=== PATIENT | female | born 1965 | race Caucasian/White ===

== ENCOUNTER → 2016-12-17 | Outpatient (CLI) | payer OTHER ==
[~2016-12-17] MED LIST: CEPHALEXIN500 M1 PO; COSAMIN DS 4001 TAB PO; DIFLUCAN150 MG PO; MULTI VITAMINS1 TAB PO; NO HOME MEDICATIONS; PERCOCET 325 MG1 TA3 PO; PHENERGAN 25 TA25 MG PO; PROMETRIUM100 MG PO; THE MEDICINE S300 M1 PO; VITAMIND3 5000 PO; [UNRECOGNIZED DRUG - OTHER]; [UNRECOGNIZED DRUG - REMARK] PO
[2016-12-17 09:31] LABS: THYROID STIMULATING HORMONE 1.79 uIU/mL (0.465-4.680)
[2016-12-18 00:14] LABS: T3 FREE (TRI-IODOTHYRONINE) 2.8 pg/mL (1.7-3.7)
[2016-12-22 09:08] LABS: T3 REVERSE TO AMS 11 ng/dL (10-24)
== END ==
LOC: COL.LAB 07:20
PROVIDERS: Urology
DX: R61 Generalized hyperhidrosis (principal); E55.9 Vitamin D deficiency, unspecified; R53.82 Chronic fatigue, unspecified

== ENCOUNTER → 2017-02-21 | Outpatient (CLI) | payer OTHER | LOC: MC.RAD 16:33 | DX: Z12.31 Encounter for screening mammogram for malignant neoplasm of breast (principal) ==

== ENCOUNTER → 2017-03-11 | Outpatient (REF) | LOC: WSOH 13:56 | DX: Z02.89 Encounter for other administrative examinations (principal) ==

== ENCOUNTER → 2018-03-12 | Outpatient (CLI) | payer OTHER ==
[2018-03-12 08:32] LABS: THYROID STIMULATING HORMONE 1.33 uIU/mL (0.465-4.680)
[2018-03-12 15:47] LABS: T3 FREE (TRI-IODOTHYRONINE) 3.2 pg/mL (1.7-3.7)
[2018-03-14 11:07] LABS: IODINE 79 ng/mL (40-92)
== END ==
LOC: COL.LAB 07:02
PROVIDERS: Urology
DX: E31.9 Polyglandular dysfunction, unspecified (principal); G47.00 Insomnia, unspecified; N95.9 Unspecified menopausal and perimenopausal disorder; R53.83 Other fatigue; R68.82 Decreased libido; R23.3 Spontaneous ecchymoses; R61 Generalized hyperhidrosis; E55.9 Vitamin D deficiency, unspecified; R53.82 Chronic fatigue, unspecified; Z79.890 Hormone replacement therapy

== ENCOUNTER → 2018-03-24 | Outpatient (CLI) | payer OTHER ==
[2018-03-24 23:48] LABS: DHEA (SULFATE) 168 mcg/dL (56-283); ESTRADIOL <10 pg/mL (())
== END ==
LOC: COL.LAB 09:55
PROVIDERS: Urology
DX: E31.9 Polyglandular dysfunction, unspecified (principal); G47.00 Insomnia, unspecified; R23.3 Spontaneous ecchymoses; R61 Generalized hyperhidrosis; E55.9 Vitamin D deficiency, unspecified; E28.310 Symptomatic premature menopause; Z79.890 Hormone replacement therapy

== ENCOUNTER 2018-05-29 05:26 | Day surgery (SDC) | payer OTHER ==
[~2018-05-29] VITALS: Ht 165.1 cm; Wt 65.0 kg
[2018-05-29] VITALS (7 sets, daily range): BP systolic 100–123; BP diastolic 55–89; PULSE 63–70; TEMP 97.9
[2018-05-29] MEDS ORDERED: NTHROIDNT65 PO (05:52)
== END 2018-05-29 11:00 | disposition home or self-care (01) ==
LOC: SDCO 05:26
DX: M20.21 Hallux rigidus, right foot (principal); M77.41 Metatarsalgia, right foot; M20.11 Hallux valgus (acquired), right foot
CPT/HCPCS: C1713; J0690; J1170; J2250; J2270; J2405; J2704; J3010; J7120

== ENCOUNTER → 2018-06-19 | Outpatient (CLI) | payer OTHER ==
[~2018-06-19] MED LIST changes: +NTHROIDNT65 PO
[2018-06-20 00:09] LABS: PROGESTERONE 0.3 ng/mL (()); T3 FREE (TRI-IODOTHYRONINE) 2.4 pg/mL (1.7-3.7)
== END ==
LOC: COL.LAB 08:22
PROVIDERS: Urology
DX: E31.9 Polyglandular dysfunction, unspecified (principal); G47.00 Insomnia, unspecified; R68.82 Decreased libido; R23.3 Spontaneous ecchymoses; R61 Generalized hyperhidrosis; E55.9 Vitamin D deficiency, unspecified; Z79.890 Hormone replacement therapy; E28.310 Symptomatic premature menopause

== ENCOUNTER → 2018-12-11 | Outpatient (CLI) | payer OTHER | LOC: MC.RAD 14:59 | DX: Z12.31 Encounter for screening mammogram for malignant neoplasm of breast (principal); R92.0 Mammographic microcalcification found on diagnostic imaging of breast; E31.9 Polyglandular dysfunction, unspecified; G47.00 Insomnia, unspecified; N95.9 Unspecified menopausal and perimenopausal disorder; R53.83 Other fatigue; R68.82 Decreased libido; R23.3 Spontaneous ecchymoses; R61 Generalized hyperhidrosis; E55.9 Vitamin D deficiency, unspecified; R53.82 Chronic fatigue, unspecified; Z98.82 Breast implant status ==

== ENCOUNTER → 2018-12-12 | Outpatient (CLI) | payer OTHER | LOC: MC.RAD 13:00 | DX: R92.0 Mammographic microcalcification found on diagnostic imaging of breast (principal); G47.00 Insomnia, unspecified; E31.9 Polyglandular dysfunction, unspecified; N95.9 Unspecified menopausal and perimenopausal disorder; R53.83 Other fatigue; R68.82 Decreased libido; R23.3 Spontaneous ecchymoses; R61 Generalized hyperhidrosis; E55.9 Vitamin D deficiency, unspecified; R53.82 Chronic fatigue, unspecified; Z98.82 Breast implant status ==

== ENCOUNTER → 2018-12-17 | Outpatient (CLI) | payer OTHER | LOC: MC.RAD 09:48 | DX: R92.0 Mammographic microcalcification found on diagnostic imaging of breast (principal); E31.9 Polyglandular dysfunction, unspecified; G47.00 Insomnia, unspecified; N95.9 Unspecified menopausal and perimenopausal disorder; R53.83 Other fatigue; R68.82 Decreased libido; R23.3 Spontaneous ecchymoses; R61 Generalized hyperhidrosis; E55.9 Vitamin D deficiency, unspecified; R53.82 Chronic fatigue, unspecified; E03.9 Hypothyroidism, unspecified; Z79.890 Hormone replacement therapy ==

== ENCOUNTER 2018-12-29 09:22 | Day surgery (SDC) | payer OTHER ==
[~2018-12-29] VITALS: Ht 165.1 cm; Wt 64.7 kg
[~2018-12-29 09:22] MED LIST changes: +EPA FISH OIL1 SGL PO; -THE MEDICINE S300 M1 PO
[2018-12-29 11:14] VITALS: BP 136/83; PULSE 55; TEMP 97.7
[2018-12-29] MEDS ORDERED: ARMOUR THYROID90 MG PO (11:32)
--- NOTE | 2018-12-29 12:29 | NUR ---
Pt taken via cart to OR by ROQUE Wilder.
[2018-12-29 13:38] VITALS: BP 107/68; PULSE 76; TEMP 97.5
--- NOTE | 2018-12-29 13:38 | NUR ---
Pt returned via cart to [facility]. A&O. VSS-see flowsheet. Dressing clean, dry and intact to left breast. No drainage noted. Pt on room air. IVF infusing to patent IV in right hand. Given iced water per request. present in room when pt returned. Side rails up and call light in reach. Pt denied pain or other complaints and denied wanting anything to eat at this time.
[2018-12-29 13:53] VITALS: BP 111/69; PULSE 68
[2018-12-29 14:08] VITALS: BP 122/68; PULSE 65
[2018-12-29 14:23] VITALS: BP 121/71; PULSE 50
[2018-12-29 14:53] VITALS: BP 117/68; PULSE 48
--- NOTE | 2018-12-29 15:13 | NUR ---
VS remain stable. Pt has tolerated two cups of water, denies wanting to eat at this time. IV removed from right hand with catheter tip intact. Cotton ball and coban pressure dressing applied to IV removal site. Pt tolerated well. Pt has dressed and voided.
--- NOTE | 2018-12-29 15:30 | NUR ---
Discharge teaching completed with pt, verbalized understanding. Taken via wheelchair to private vehicle for dc home with driving.
== END 2018-12-29 15:30 | disposition home or self-care (01) ==
LOC: SDCO 09:22
DX: D05.12 Intraductal carcinoma in situ of left breast (principal); M19.90 Unspecified osteoarthritis, unspecified site; Z79.52 Long term (current) use of systemic steroids; Z80.3 Family history of malignant neoplasm of breast; Z88.2 Allergy status to sulfonamides; Z88.6 Allergy status to analgesic agent
CPT/HCPCS: J0690; J1100; J1885; J2250; J2405; J2704; J3010; J7120

== ENCOUNTER 2019-06-03 05:38 | Day surgery (SDC) | payer OTHER ==
[~2019-06-03] VITALS: Ht 167.6 cm; Wt 65.9 kg
[~2019-06-03 05:38] MED LIST changes: +ARMOUR THYROID90 MG PO
[2019-06-03 06:01] VITALS: BP 110/74; PULSE 66; TEMP 97.4
[2019-06-03] MEDS ORDERED: ARIMIDEX1 MG PO (06:32)
[2019-06-03 07:41] VITALS: BP 104/63; PULSE 65
--- NOTE | 2019-06-03 07:41 | NUR ---
Pt arrived back to [facility] via cart with [employer] COOPER. Awake and oriented. Pt denies any pain in foot but states that it is, "hot and numb." Dressing, per report, is xerofoam, 4x4's, soft roll, and BHARATH bandage. Dressing is CDI, and pt's toes are pink with brisk capillary refill. Pt also able to wiggle toes and move. Pt denies nausea at this time. VSS and WNL. Call light within reach and at bedside.
[2019-06-03 08:00] VITALS: BP 100/59; PULSE 65
[2019-06-03 08:15] VITALS: BP 116/69; PULSE 62
--- NOTE | 2019-06-03 08:15 | NUR ---
Pt states that she's ready to go home. Pt able to successfully void and stand without dizziness/lighteadedness. Pt denies n/v or pain. Reviewed discharge information with patient and . They expressed understanding and had no further concerns/questions. VSS and WNL
--- NOTE | 2019-06-03 08:32 | NUR ---
Pt sitting up in bed and drinking coffee awake, alert, and oriented. VSS and WNL. Pt denies pain or nausea at this time. Dressing continues to be CDI. Call light within reach and at bedside. Received verbal order from MATTHEW Landa for Toradol 15 mg. Given per orders.
--- NOTE | 2019-06-03 08:57 | NUR ---
Pt left via wheelchair non weightbearing to car. Pt has post op boot in posession. Pt and left without further concerns/questions.
== END 2019-06-03 08:35 | disposition home or self-care (01) ==
LOC: SDCO 05:38
DX: T84.89XA Other specified complication of internal orthopedic prosthetic devices, implants and grafts, initial encounter (principal); Z88.2 Allergy status to sulfonamides; Z88.8 Allergy status to other drugs, medicaments and biological substances; Z85.3 Personal history of malignant neoplasm of breast; Z82.3 Family history of stroke; Z88.6 Allergy status to analgesic agent; M19.90 Unspecified osteoarthritis, unspecified site
CPT/HCPCS: J0690; J1100; J1885; J2250; J2405; J2704; J3010; J7120

== ENCOUNTER → 2019-12-14 | Outpatient (CLI) | payer OTHER ==
[~2019-12-14] MED LIST changes: +ARIMIDEX1 MG PO
== END ==
LOC: MC.RAD 08:15
DX: D05.12 Intraductal carcinoma in situ of left breast (principal); Z98.890 Other specified postprocedural states; Z98.82 Breast implant status
CPT/HCPCS: G0279

== ENCOUNTER → 2020-10-11 | Outpatient (REF) | LOC: COL.LAB 08:17 | DX: Z20.822 Contact with and (suspected) exposure to COVID-19 (principal) ==

== ENCOUNTER → 2020-12-14 | Outpatient (CLI) | payer OTHER | LOC: MC.RAD 10:30 | DX: Z12.31 Encounter for screening mammogram for malignant neoplasm of breast (principal); D05.12 Intraductal carcinoma in situ of left breast; Z98.82 Breast implant status ==

== ENCOUNTER → 2022-01-18 | Outpatient (CLI) | payer OTHER | LOC: MC.RAD 15:51 | DX: Z12.31 Encounter for screening mammogram for malignant neoplasm of breast (principal); Z85.3 Personal history of malignant neoplasm of breast; Z90.12 Acquired absence of left breast and nipple; Z92.3 Personal history of irradiation; N64.89 Other specified disorders of breast ==

== ENCOUNTER → 2022-01-23 | Outpatient (CLI) | payer OTHER | LOC: MC.RAD 14:00 | DX: Z86.000 Personal history of in-situ neoplasm of breast (principal); Z90.12 Acquired absence of left breast and nipple; Z51.0 Encounter for antineoplastic radiation therapy; N64.89 Other specified disorders of breast ==